=== PATIENT | female | born 1980 | race Caucasian/White ===

== ENCOUNTER 2024-10-18 14:05 | Emergency (ER) | payer MEDICAID, OTHER ==
[~2024-10-18] VITALS: Ht 162.6 cm; Wt 73.5 kg
[2024-10-18] MEDS ORDERED: IBUP80TA PO (15:38)
[2024-10-18] MEDS: KETOROLAC 60MG 2ML VIAL IM ONE (15:43)
[2024-10-18 16:01] VITALS: BP 117/65; TEMP 98.7; O2SAT 100
== END 2024-10-18 16:03 | disposition home or self-care (01) ==
LOC: EDBD 14:05 → M ED 14:05
DX: S60.221A Contusion of right hand, initial encounter (principal); Y92.9 Unspecified place or not applicable; Y93.9 Activity, unspecified; Y99.0 Civilian activity done for income or pay; W23.0XXA Caught, crushed, jammed, or pinched between moving objects, initial encounter; Z91.018 Allergy to other foods; Z79.1 Long term (current) use of non-steroidal anti-inflammatories (NSAID)
CPT/HCPCS: 73130; 96372; 99284; J1885